=== PATIENT | female | born 1960 | race Caucasian/White ===

== ENCOUNTER → 2017-01-29 07:38 | Outpatient (CLI) | payer BC ==
[2012-05-02 07:26] VITALS: BMI 45.7
[2017-01-30 09:20] LABS: IMMUNOGLOBULIN E 118 IU/mL (0-100)
[2017-01-30 10:22] LABS: IMMUNOGLOBULIN A 265 mg/dL (87-352); IMMUNOGLOBULIN G 1111 mg/dL (700-1600)
== END | disposition home or self-care (01) ==
LOC: D.RT 01-03 09:00
PROVIDERS: Internal Medicine Pulmonary Disease
DX: J45.909 Unspecified asthma, uncomplicated (principal)

== ENCOUNTER 2018-09-04 16:34 | Emergency (ER) | payer BC ==
[~2018-09-04] VITALS: Ht 172.7 cm; Wt 154.2 kg
[2018-09-04 17:00] VITALS: Ht 172.7 cm; Wt 154.2 kg
[2018-09-04] MEDS ORDERED: OMEPRAZOLE40 MG PO (17:01)
[2018-09-04] MEDS ORDERED: BAYER CHEWABLE81 MG (17:01)
[2018-09-04] MEDS ORDERED: CYMBALTA60 MG PO (17:02)
[2018-09-04] MEDS ORDERED: ZYLOPRIM300 MG PO (17:02)
[2018-09-04] MEDS ORDERED: VASOTEC20 MG (17:03)
[2018-09-04] MEDS ORDERED: GABAPENTIN100 MG PO (17:03)
[2018-09-04] MEDS ORDERED: BUPROPION XL300 MG PO (17:03)
[2018-09-04] MEDS ORDERED: CYCLOBENZAPRINE10 MG PO (17:04)
[2018-09-04] MEDS ORDERED: HYDROCODON-ACE1 EAC7 PO (19:23)
[2018-09-04 19:35] VITALS: BP 133/80
== END 2018-09-04 19:35 | disposition home or self-care (01) ==
LOC: D.ER 16:34
DX: M25.561 Pain in right knee (principal)

== ENCOUNTER → 2019-02-12 07:29 | Outpatient (CLI) | payer BC ==
[2018-09-04 17:00] VITALS: BMI 45.7
[~2019-02-12 07:29] MED LIST: ACETAMINOPHEN500 M1 PO; BAYER CHEWABLE81 MG; BUPROPION XL300 MG PO; CLEOCIN HCL300 MG PO; COMBIVENT RESPIM4 GM INH; CYCLOBENZAPRINE10 MG PO; CYMBALTA60 MG PO; GABAPENTIN100 MG PO; HYDROCODON-ACE1 EAC7 PO; IBUPROFEN800 MG PO; KEFLEX500 MG PO; OMEPRAZOLE40 MG PO; VASOTEC20 MG; ZYLOPRIM300 MG PO
== END | disposition home or self-care (01) ==
LOC: D.MRI 07:29
PROVIDERS: ATTEND Orthopaedic Surgery
DX: S83.231A Complex tear of medial meniscus, current injury, right knee, initial encounter (principal)

== ENCOUNTER 2019-02-15 12:56 | Emergency (ER) | payer BC ==
[~2019-02-15] VITALS: Ht 172.7 cm; Wt 136.4 kg
[~2019-02-15 12:56] MED LIST changes: -ACETAMINOPHEN500 M1 PO; -CLEOCIN HCL300 MG PO; -COMBIVENT RESPIM4 GM INH; -IBUPROFEN800 MG PO; -KEFLEX500 MG PO
[2019-02-15 13:16] VITALS: Ht 172.7 cm; Wt 136.4 kg
[2019-02-15] MEDS ORDERED: COMBIVENT RESPIM4 GM INH (13:40)
[2019-02-15 14:00] LABS: BASOPHILS 0.2 % (0-2); EOSINOPHILS 0 % (0-7); HEMATOCRIT 44.2 % (36.0-48.0); HEMOGLOBIN 14.5 g/dL (12-16); IMMATURE GRANULOCYTES 0.3 % (0-5); LYMPHOCYTES 24.9 % (15-50); MCH 31.5 pg (26.0-34.0); MCHC 32.8 g/dL (31.0-37.0); MCV 96.1 fL (80.0-100.0); MEAN PLATELET VOLUME 9.4 fL (7.4-10.4); MONOCYTES 5.8 % (2-11); NEUTROPHILS 68.8 % (40-80); PLATELET COUNT 239 10x3/uL (130-400); RDW 13.3 % (11.5-14.5); WBC 6.6 10x3/uL (4.8-10.8)
[2019-02-15 15:11] LABS: ALBUMIN 3.7 g/dL (3.4-5.0); ANION GAP 12.6 mmol/L (8-16); BILIRUBIN - TOTAL 0.4 mg/dL (0.2-1.3); CALCIUM 9.2 mg/dL (8.5-10.1); CARBON DIOXIDE 28.9 mmol/L (21.0-32.0); CREATININE - SERUM 0.9 mg/dL (0.6-1.3); POTASSIUM - SERUM 4.5 mmol/L (3.5-5.1); PROTEIN - SERUM 7.3 g/dL (6.4-8.2)
[2019-02-15] MEDS ORDERED: CYCLOBENZAPRINE10 MG PO (17:16)
[2019-02-15] MEDS ORDERED: IBUPROFEN800 MG PO (17:16)
[2019-02-15] MEDS ORDERED: CLEOCIN HCL300 MG PO (17:16)
[2019-02-15] MEDS ORDERED: KEFLEX500 MG PO (17:16)
[2019-02-15] MEDS ORDERED: ACETAMINOPHEN500 M1 PO (17:16)
[2019-02-15 18:36] VITALS: BP 140/85
== END 2019-02-15 18:37 | disposition home or self-care (01) ==
LOC: D.ER 12:56
PROVIDERS: Family Medicine
DX: L03.211 Cellulitis of face (principal); R51 Headache

== ENCOUNTER 2020-05-10 09:32 | Day surgery (SDC) | payer BC ==
[2020-05-09 14:06] LABS: BASOPHILS 0.4 % (0-2); EOSINOPHILS 0 % (0-7); HEMATOCRIT 47.4 % (36.0-48.0); HEMOGLOBIN 15.2 g/dL (12-16); IMMATURE GRANULOCYTES 0.1 % (0-5); LYMPHOCYTES 26.5 % (15-50); MCH 31.3 pg (26.0-34.0); MCHC 32.1 g/dL (31.0-37.0); MCV 97.7 fL (80.0-100.0); MEAN PLATELET VOLUME 9.5 fL (7.4-10.4); MONOCYTES 6.8 % (2-11); NEUTROPHILS 66.2 % (40-80); PLATELET COUNT 261 10x3/uL (130-400); RBC 4.85 10x6/uL (4.00-5.40); WBC 7.9 10x3/uL (4.8-10.8)
[~2020-05-10] VITALS: Ht 172.7 cm; Wt 158.8 kg
[~2020-05-10 09:32] MED LIST changes: +ACETAMINOPHEN500 M1 PO; +CLEOCIN HCL300 MG PO; +COMBIVENT RESPIM4 GM INH; +IBUPROFEN800 MG PO; +KEFLEX500 MG PO
[2020-05-10 09:49] VITALS: BP 158/101; Ht 172.7 cm; Wt 158.8 kg
--- NOTE | 2020-05-10 14:20 | NUR ---
1310 ARRIVED TO ROOM. CRAMPING NOTED AND WANTED TO URINATE. ASSISTED TO BATHROOM AND VOIDED A SMALL AMT. 1315 NAUSEATED AND IN PAIN 03/01. DR RAPHAEL CALLED FOR PAIN AND NAUSEA MEDS. MEDICATED FOR NAUSEA WITH GOOD RESULTS. IVF GIVEN. RECIEVED A JELLO AND PAIN MEDS.
--- NOTE | 2020-05-10 15:10 | NUR ---
1445 IV REMOVED AND INSTRUCTIONS GIVEN
--- NOTE | 2020-05-26 22:23 | OP ---
PATIENT NAME: BAKARI CARRERO MEDICAL RECORD: [id number] :58 LOCATION:D.OPS ADMISSION DATE: SURGEON: RONEN VAUGHAN DO DATE OF OPERATION: 05/10/2020 PREOPERATIVE DIAGNOSIS: Postmenopausal bleeding. POSTOPERATIVE DIAGNOSES: Postmenopausal bleeding, endometrial polyps. PRIMARY SURGEON: Ronen Vaughan DO ANESTHESIA: General LMA. PROCEDURE: Hysteroscopy, dilation and curettage, polypectomy. FINDINGS: Normal-appearing external genitalia, normal-appearing vaginal vault. Normal-appearing cervix. Uterus sounded to 8 cm. Endometrium with numerous endometrial polyps. SPECIMENS: Endometrial polyps, endometrial curettings. ESTIMATED BLOOD LOSS: 10 cc. IV FLUIDS: 650 cc. URINE OUTPUT: 50 cc clear urine. COMPLICATIONS: Small hymenal ring laceration from the speculum repaired with a [id number] suture of 2-0 chromic. PROCEDURE IN DETAIL: The risks, benefits, alternatives, and indications of the procedure were discussed with the patient. She voiced understanding of the procedure and signed a consent. She was taken to the OR where general anesthesia was administered and found to be adequate. She was placed in the dorsal lithotomy position. She was prepped and draped in the normal sterile fashion. A speculum was placed in the posterior aspect of the vagina and a single tooth tenaculum was used to grasp the anterior lip of the cervix. The uterus was sounded to 8 cm. The cervix was dilated to accommodate the hysteroscope. The hysteroscope was inserted into the uterus and numerous endometrial polyps were noted. The hysteroscope was removed from the uterus and the cervix was further dilated to accommodate a sharp curette. A gentle sharp curettage was performed with endometrial curettings and polyp sent to pathology. The tenaculum was removed and the tenaculum site was noted to be hemostatic. The speculum was removed. After the removal of the speculum, there was a small laceration on the hymenal ring on the left side, noted from the speculum, which was bleeding and so it was repaired with a [id number] 2-0 chromic suture with good hemostasis. All needle, lap, sponge, and instrument counts were correct times 2. Hemostasis was adequate at the end of the procedure. The patient was awakened and taken to the recovery room in stable condition. TRANSINT:[id number] Voice Confirmation ID: [id number] DOCUMENT ID: [id number] OPERATIVE REPORT [id number] BAKARI CARRERO REBECCA DO at 2223 CC: [id number] DICTATION DATE: 05/26/20 1134 IMAGERY INTELLIGENCE: 05/26/20 1228 [facility] 05/10/20 [place] [id number] [place] [id number]
== END 2020-05-10 15:00 | disposition home or self-care (01) ==
LOC: D.OPS 09:32 → D.PAN 11:30 → D.OPS 15:00
PROVIDERS: ATTEND Student in an Organized Health Care Education/Training Program
DX: N95.0 Postmenopausal bleeding (principal); N84.0 Polyp of corpus uteri

== ENCOUNTER 2020-05-31 11:30 | Outpatient (CLI) | payer BC ==
[2020-05-10 09:49] VITALS: BMI 53.3
== END 2020-05-31 23:59 | disposition home or self-care (01) ==
LOC: D.MAMMO 11:30
PROVIDERS: ATTEND Emergency Medicine
DX: Z12.31 Encounter for screening mammogram for malignant neoplasm of breast (principal)

== ENCOUNTER 2020-06-16 06:59 | Emergency (ER) | payer BC ==
[~2020-06-16] VITALS: Ht 172.7 cm; Wt 159.1 kg
[2020-06-16 07:05] VITALS: BP 150/82; Ht 172.7 cm; Wt 159.1 kg
[2020-06-16 08:19] LABS: INR 1.05 (0.85-1.17); PROTIME 13.7 SECONDS (11.6-15.0)
[2020-06-16 08:24] LABS: BASOPHILS 0.7 % (0-2); EOSINOPHILS 0 % (0-7); HEMATOCRIT 36.3 % (36.0-48.0); HEMOGLOBIN 11.1 g/dL (12-16); IMMATURE GRANULOCYTES 0.2 % (0-5); LYMPHOCYTES 18.2 % (15-50); MCH 29.8 pg (26.0-34.0); MCHC 30.6 g/dL (31.0-37.0); MCV 97.3 fL (80.0-100.0); MEAN PLATELET VOLUME 9.5 fL (7.4-10.4); NEUTROPHILS 70.9 % (40-80); PLATELET COUNT 241 10x3/uL (130-400); RBC 3.73 10x6/uL (4.00-5.40); RDW 13.3 % (11.5-14.5)
[2020-06-16 08:33] LABS: ANION GAP 10.7 mmol/L (8-16); CALCIUM 7.9 mg/dL (8.5-10.1); CARBON DIOXIDE 24.8 mmol/L (21.0-32.0); POTASSIUM - SERUM 4.5 mmol/L (3.5-5.1)
[2020-06-16 08:44] LABS: ALBUMIN 2.8 g/dL (3.4-5.0); BILIRUBIN - TOTAL 0.34 mg/dL (0.2-1.3); PROTEIN - SERUM 5.8 g/dL (6.4-8.2)
[2020-06-16 09:07] LABS: BILIRUBIN NEGATIVE (NEGATIVE); KETONE NEGATIVE (NEGATIVE); NITRITE POSITIVE (NEGATIVE)
[2020-06-16 09:08] LABS: BACTERIA MODERATE HPF (NONE SEEN); WHITE CELLS - URINE 0-5 HPF (0-4)
[2020-06-16] MEDS ORDERED: MACROBID100 MG PO (10:31)
== END 2020-06-16 10:48 | disposition home or self-care (01) ==
LOC: D.ER 06:59
PROVIDERS: Family Medicine
DX: N39.0 Urinary tract infection, site not specified (principal); G62.9 Polyneuropathy, unspecified; I10 Essential (primary) hypertension; J45.909 Unspecified asthma, uncomplicated; K21.9 Gastro-esophageal reflux disease without esophagitis; R11.0 Nausea; T81.9XXA Unspecified complication of procedure, initial encounter